=== PATIENT | female | born 1960 | race Caucasian/White ===

== ENCOUNTER 2023-06-24 08:25 | Inpatient (IN) | payer MEDICARE, OTHER ==
[2023-06-18 15:04] LABS: BILIRUBIN,URINE NEGATIVE (Neg); CLARITY,URINE CLEAR (Clear); COLOR,URINE YELLOW (Yellow); GLUCOSE, URINE NEGATIVE (Neg); KETONES,URINE NEGATIVE (Neg); LEUKOCYTE ESTERASE ,URINE NEGATIVE (Neg); NITRITES, URINE NEGATIVE (Neg); OCCULT BLOOD,URINE NEGATIVE (Neg); PROTEIN,URINE NEGATIVE (Neg); UROBILINOGEN,URINE 0.2 E.U/dL (0.2-1.0)
[2023-06-18 15:05] LABS: BASOPHILS % (AUTO) 0.4 % (0-1); EOSINOPHILS # (AUTO) 0.1 X10'3 (0-0.9); EOSINOPHILS % (AUTO) 1.1 % (0-6); LYMPHOCYTES # (AUTO) 2.7 X10'3 (1.1-4.8); LYMPHOCYTES % (AUTO) 43.7 % (21-51); MEAN CORPUSCULAR VOLUME 94.3 FL (78-98); MEAN PLATELET VOLUME 7.5 FL (7.4-10.4); MONOCYTES # (AUTO) 0.6 X10'3 (0-0.9); MONOCYTES % (AUTO) 9.5 % (2-12); NEUTROPHILS # (AUTO) 2.8 X10'3 (1.8-7.7); NEUTROPHILS % (AUTO) 45.3 % (42-75); PRE OP HEMATOCRIT 43.6 % (35.0-45.0); PRE OP HEMOGLOBIN 14.8 g/dL (12.0-16.0); PRE OP PLATELET COUNT 267 X10'3 (140-440); PRE OP WHITE BLOOD COUNT 6.2 10'3 (4.8-10.8); RED BLOOD COUNT 4.62 X10'6 (4.20-5.60); RED CELL DISTRIBUTION WIDTH 14.5 % (11.5-14.5)
[2023-06-18 15:10] LABS: UA COLLECTION TYPE NON-SPECIFIED
[2023-06-18 15:26] LABS: ALBUMIN 3.7 G/DL (3.4-5.0); ALBUMIN/GLOBULIN RATIO 1.1 (1.1-1.5); ALKALINE PHOSPHATASE 129 IU/L (46-116); BLOOD UREA NITROGEN 15 MG/DL (7-18); CALCIUM 8.9 MG/DL (8.5-10.1); CHLORIDE 104 MMOL/L (99-107); CREATININE 0.75 MG/DL (0.40-0.90); PRE OP ALT 33 U/L (30-65); PRE OP ANION GAP 4 (8-16); PRE OP AST 21 U/L (10-37); PRE OP BILIRUB, TOTAL 1.5 MG/DL (0.0-1.0); PRE OP GLUCOSE 81 MG/DL (70-104); PRE OP POTASSIUM 3.9 MMOL/L (3.4-5.1); PRE OP SODIUM 140 MMOL/L (135-145); THYROID STIMULATING HORMONE 2.07 ulU/ml (0.34-4.50); TOTAL CARBON DIOXIDE 31.7 MMOL/L (24-32); eGFR 79 ML/MIN
[2023-06-24] VITALS (21 sets, daily range): BP systolic 113–156; BP diastolic 60–81; PULSE 71–94; RESP 14–18; TEMP 98.1–98.9; O2SAT 84–98
[~2023-06-24] VITALS: Ht 170.2 cm; Wt 93.2 kg
[2023-06-24] MEDS: ceFOXitin 2GM-NS 100mL ADDvant 100 ML IV ONE (05:30)
[~2023-06-24 08:25] MED LIST: AMIO400T5 PO; ATOR40TA72 PO; DUPI300S SQ; FURO-150 PO; LEVO75TA7 PO; POTA-192 PO; SACU1TAB PO; VITAMIN D
[2023-06-24] MEDS: famotidine 20mg tablet PO ONE (09:26)
[2023-06-24] MEDS: ringers solution, lacted 1,000 ML IV SCH ×3 (09:26→17:15)
[2023-06-24] MEDS ORDERED: vasoPRESSIN 20 units/ml inj. ONE (12:44)
[2023-06-24] MEDS ORDERED: propofol inj 20 ML IV ONE (13:09)
[2023-06-24] MEDS ORDERED: midazolam 1 mg/ML 2ml injection ONE (13:09)
[2023-06-24] MEDS ORDERED: rocuronium 10mg/ml inj IV ONE (13:09)
[2023-06-24] MEDS ORDERED: fentaNYL /PF 50mcg/ml 5ml ampule ONE (13:09)
[2023-06-24] MEDS ORDERED: sevoflurane 250ml liquid IH ONE (13:11)
[2023-06-24] MEDS: BUPIVAcaine 2.5mg/ml inj 50ml vial (contains preservative) ONE (14:09)
[2023-06-24] MEDS ORDERED: dexamethasone sod phosphate 4mg/ml inj. ONE (14:10)
[2023-06-24] MEDS: neomy sulf/polymyxin B sulf. GU irrigation 1ml amp IR ONE (14:11)
[2023-06-24] MEDS ORDERED: proCHLORperazine 10 MG/2 ml inj IV PRN (14:20)
[2023-06-24] MEDS ORDERED: morphine 4 MG/ML inj SYRINge IV PRN (14:20)
[2023-06-24] MEDS ORDERED: meperidine/PF 25mg/ml syringe IV PRN ×2 (14:20)
[2023-06-24] MEDS ORDERED: morphine 2 MG/ML inj. syringe IV PRN (14:20)
[2023-06-24] MEDS ORDERED: ondansetron/PF 4mg/2ml inj IV PRN ×2 (14:20→17:15)
[2023-06-24] MEDS ORDERED: fluoroscein sod 10% (100mg/ml) 5ml vial ONE (16:36)
[2023-06-24] MEDS ORDERED: ondansetron/PF 4mg/2ml inj ONE (16:38)
[2023-06-24] MEDS ORDERED: clindamycin phosphate 40gm vag cream ONE (16:39)
[2023-06-24] MEDS ORDERED: BUPIVAcaine 2.5mg/ml inj 50ml vial (contains preservative) ONE (16:51)
[2023-06-24] MEDS ORDERED: neostigmine methylsulfate 1 MG/ML 10ml vial ONE (17:03)
[2023-06-24] MEDS ORDERED: metoclopramide 5 mg/ml inj IV PRN (17:15)
[2023-06-24] MEDS ORDERED: diphenhydrAMINE 50 mg/ml inj IV PRN (17:15)
[2023-06-24] MEDS ORDERED: LORazepam 2 mg/ml vial IV PRN (17:15)
[2023-06-24] MEDS ORDERED: normal saline 500ml IV soln 500 ML IV PRN (17:15)
[2023-06-24] MEDS ORDERED: HYDROcodone/acetaminophen 5mg/325mg tablet PO PRN (17:15)
[2023-06-24] MEDS ORDERED: temazepam 15mg capsule PO PRN (17:15)
[2023-06-24] MEDS: meperidine/PF 25mg/ml syringe IV PRN (17:52)
[2023-06-24] MEDS: HYDROcodone/acetaminophen 5mg/325mg tablet PO PRN (19:18)
[2023-06-24] MEDS: docusate sod 100mg capsule PO SCH (19:19)
[2023-06-25 02:00] VITALS: BP 114/67; PULSE 93; RESP 20; TEMP 98.7; O2SAT 91
[2023-06-25 05:52] LABS: BASOPHILS % (AUTO) 0.2 % (0-1); EOSINOPHILS % (AUTO) 0 % (0-6); HEMATOCRIT 39.5 % (35.0-45.0); HEMOGLOBIN 13.3 g/dl (12.0-16.0); LYMPHOCYTES # (AUTO) 0.9 X10'3 (1.1-4.8); LYMPHOCYTES % (AUTO) 8.9 % (21-51); MEAN CORPUSCULAR HEMOGLOBIN 32.1 PG (27.0-31.0); MEAN CORPUSCULAR HGB CONC 33.6 g/dL (33.0-36.5); MEAN CORPUSCULAR VOLUME 95.3 FL (78-98); MONOCYTES # (AUTO) 0.6 X10'3 (0-0.9); MONOCYTES % (AUTO) 5.7 % (2-12); NEUTROPHILS # (AUTO) 8.7 X10'3 (1.8-7.7); NEUTROPHILS % (AUTO) 85.2 % (42-75); PLATELET COUNT 255 X10'3 (140-440); RED BLOOD COUNT 4.14 X10'6 (4.20-5.60); RED CELL DISTRIBUTION WIDTH 14.5 % (11.5-14.5); WHITE BLOOD COUNT 10.2 X10'3 (4.5-11.0)
[2023-06-25 05:53] LABS: ALBUMIN 3.1 G/DL (3.4-5.0); ANION GAP 11 (8-16); BLOOD UREA NITROGEN 9 MG/DL (7-18); BUN/CREATININE RATIO 12.7 (10.0-20.0); CALCIUM 8.6 MG/DL (8.5-10.1); CHLORIDE 101 MMOL/L (99-107); CREATININE 0.71 MG/DL (0.40-0.90); GLUCOSE 113 MG/DL (70-104); POTASSIUM 3.6 MMOL/L (3.5-5.1); SODIUM 136 MMOL/L (135-145); TOTAL CARBON DIOXIDE 24.1 MMOL/L (24-32); eCRCL 82 ML/MIN; eGFR 84 ML/MIN
[2023-06-25 06:20] VITALS: BP 110/67; PULSE 83; RESP 16; TEMP 98; O2SAT 92
[2023-06-25] MEDS: enoxaparin 40mg/0.4ml syringe SQ SCH (07:28)
[2023-06-25 10:00] VITALS: BP 98/53; PULSE 61; RESP 14; TEMP 97.8; O2SAT 90
== END 2023-06-25 14:35 | disposition home or self-care (01) | DRG 743 ==
LOC: PAS 08:25 → SUR 3N 18:52 → UNDOADMIN 18:52 → SUR 3N 18:53
PROVIDERS: ADMIT Obstetrics & Gynecology Obstetrics; ATTEND Obstetrics & Gynecology Obstetrics
PROC: 0UT2FZZ Resection of Bilateral Ovaries, Via Natural or Artificial Opening With Percutaneous Endoscopic Assistance (ICD-10-PCS; 2023-06-24)
PROC: 0UT7FZZ Resection of Bilateral Fallopian Tubes, Via Natural or Artificial Opening With Percutaneous Endoscopic Assistance (ICD-10-PCS; 2023-06-24)
PROC: 0US94ZZ Reposition Uterus, Percutaneous Endoscopic Approach (ICD-10-PCS; 2023-06-24)
PROC: 0USG4ZZ Reposition Vagina, Percutaneous Endoscopic Approach (ICD-10-PCS; 2023-06-24)
PROC: 0JQC3ZZ Repair Pelvic Region Subcutaneous Tissue and Fascia, Percutaneous Approach (ICD-10-PCS; 2023-06-24)
PROC: 0JQC3ZZ Repair Pelvic Region Subcutaneous Tissue and Fascia, Percutaneous Approach (ICD-10-PCS; 2023-06-24)
PROC: 0TJB8ZZ Inspection of Bladder, Via Natural or Artificial Opening Endoscopic (ICD-10-PCS; 2023-06-24)
PROC: 0UT9FZZ Resection of Uterus, Via Natural or Artificial Opening With Percutaneous Endoscopic Assistance (ICD-10-PCS; principal; 2023-06-24 13:11)
DX: N81.89 Other female genital prolapse (principal); N81.10 Cystocele, unspecified; N81.6 Rectocele
CPT/HCPCS: 36415; 71046; 80048; 80053; 81003; 82948; 84443; 85025; 86885; 86900; 86901; 87081; 88305; 93005; A4314; A4358; A4615; A4618; A5200; A7000; G0378; J0694; J1100; J1650; J2175; J2250; J2405; J2704; J2710; J3010; J3490; J7120